=== PATIENT | male | born 1960 | race Caucasian/White ===

== ENCOUNTER 2017-06-09 19:29 | Observation (INO) | payer OTHER ==
[2017-06-09] MEDS ORDERED: NS 1,000 ML IV ONE (19:41)
[2017-06-09] MEDS ORDERED: ONDANSETRON 4 MG/2 ML VIAL IVP ONE (19:41)
[2017-06-09] MEDS ORDERED: HYDROmorphONE/DILAUDID 1 MG/ML INJ IVP ONE (19:41)
--- NOTE | 2017-06-09 19:50 | EDPHY ---
H & P Time Seen by Provider: 06/09/17 19:36 HPI/ROS: HPI Lower abdominal pain. 57-year-old male by private vehicle. This patient reports that he developed periumbilical pain starting at 8:30 a.m.. This pain then migrated down to his right lower quadrant. He describes the pain as being constant and at a low level throughout the day and evening. He reports that he has had episodes of more intense pain that come on intermittently. Pain described as burning and cramping in the right lower quadrant. No gross hematuria. No urinary complaints. Last meal was about 2 hours ago at 6:00 p.m.. This consisted of a bowl of cereal. He had an episode of nonbilious nonbloody vomiting at 12 noon but has not vomited since that time. He had 2 normal bowel movements today no bloody or melenic stool. No previous abdominal surgical history. ROS: Constitutional: No fever, no chills. No weakness. Eyes: No discharge. No changes in vision. ENT: No sore throat. No nasal congestion or rhinorrhea. Respiratory: No cough. No shortness of breath. Cardiac: No chest pain, no palpitations. Gastrointestinal: As above, no diarrhea. Genitourinary: No hematuria. No dysuria or increased frequency with urination. Musculoskeletal: No back pain. No neck pain. No myalgias or arthralgias. Skin: No rashes. Neurological: No headache. No focal weakness or altered sensation. Past medical history: Type 2 diabetes, hyperlipidemia, borderline hypertension. Medications include lisinopril, metformin on a statin. His primary care physician is Dr. Jolley. Social history: Nonsmoker. No alcohol. Here by himself. Physical Exam: General Appearance: Alert, no distress. Mildly obese habitus. This patient is responding to questions appropriately and in full sentences. This patient appears well-hydrated and well-nourished. Eyes: Pupils equal and round no pallor or injection. No lid edema, erythema or injection. Respiratory: There are no retractions, lungs are clear to auscultation with good air movement bilaterally. Cardiovascular: Regular rate and rhythm. No murmur. Gastrointestinal: Abdomen is soft with moderate right lower quadrant tenderness on palpation, no masses, bowel sounds normal. No Rodriguez sign. Neurological: Motor sensory function is grossly intact. Cranial nerves are normal. Gait is normal. Skin: Warm and dry, no rashes. Musculoskeletal: No CVA tenderness on palpation bilaterally. Extremities are symmetrical. All joints range without pain or impingement. Psychiatric: No agitation. No depression. Database: EKG: Imaging: CT scan of abdomen pelvis with IV contrast: Significant for acute appendicitis. No evidence of perforation. Significant periappendiceal inflammatory changes. Results discussed with staff radiologist. Procedures: Emergency department course: IV placed. He was placed on a playground monitor. He was started on IV normal saline with 1 L to be given over the next hour. He was initially given 0.25 mg of IV hydromorphone and 4 mg of IV Zofran. He consents for CT imaging to evaluate for appendicitis. 8:40 p.m., patient informed of diagnosis of acute appendicitis and need for operative management. Medication allergies reviewed. He was started on 1 g of IV Invanz in the emergency department. General surgery paged. 8:45 p.m. discussed case with on-call general surgeon Dr. David Manjarrez. He accepts this patient for transfer to [facility] and admission for operative management of acute appendicitis. At this time the patient does not have significant pain. He is declining any pain medication. He will drive himself to the [facility]. 9:15 p.m., patient discharge to [facility] in stable condition. Differential Diagnosis: The differential diagnosis on this patient includes but is not limited to appendicitis, ureterolithiasis, constipation. This represents a partial list of diagnoses considered. These considerations are based on history, physical exam, past history, reassessment and diagnostic testing. Smoking Status: Never smoked Constitutional: Initial Vital Signs Temperature (C) 36.7 C 06/09/17 19:42 Heart Rate 100 06/09/17 19:42 Respiratory Rate 16 06/09/17 19:42 Blood Pressure 136/83 H 06/09/17 19:42 O2 Sat (%) 96 06/09/17 19:42 O2 Delivery Mode Room Air Allergies/Adverse Reactions: Tetanus Vaccines and Toxoid Allergy (Intermediate, Verified 06/09/17 19:45) Home Medications: Medication Instructions Recorded Atorvastatin Calcium 12/05/14 Metformin HCl 12/05/14 Lisinopril 06/09/17 Medical Decision Making - Diagnostics Imaging Results: Imaging Impressions Abdomen CT 06/09/17 19:47 Impression: 1. Acute appendicitis without evidence of rupture or abscess. 2. Hilda small bowel mesentery, nonspecific but possibly related to adjacent appendicitis. 3. Diverticulosis. 4. Cholelithiasis. Dr. Bunn discussed these findings by telephone with Leonora Moraes MD on 06/09/2017 at 20:37 hours. - Data Points Laboratory Results: Laboratory Results 06/09/17 19:45 06/09/17 19:45 06/09/17 06/09/17 06/09/17 19:45 19:45 19:45 WBC 18.42 10^3/uL H 10^3/uL (3.80-9.50) RBC 4.95 10^6/uL 10^6/uL (4.40-6.38) Hgb 15.9 g/dL g/dL (13.7-17.5) Hct 45.4 % % (40.0-51.0) MCV 91.7 fL fL (81.5-99.8) MCH 32.1 pg pg (27.9-34.1) MCHC 35.0 g/dL g/dL (32.4-36.7) RDW 12.3 % % (11.5-15.2) Plt Count 246 10^3/uL 10^3/uL (150-400) MPV 9.5 fL fL (8.7-11.7) Neut % (Auto) 77.9 % H % (39.3-74.2) Lymph % (Auto) 14.4 % L % (15.0-45.0) [place] % (Auto) 6.5 % % (4.5-13.0) Eos % (Auto) 0.3 % L % (0.6-7.6) Baso % (Auto) 0.4 % % (0.3-1.7) Nucleat RBC Rel Count 0.0 % % (0.0-0.2) Absolute Neuts (auto) 14.35 10^3/uL H 10^3/uL (1.70-6.50) Absolute Lymphs (auto) 2.65 10^3/uL 10^3/uL (1.00-3.00) Absolute Monos (auto) 1.19 10^3/uL H 10^3/uL (0.30-0.80) Absolute Eos (auto) 0.06 10^3/uL 10^3/uL (0.03-0.40) Absolute Basos (auto) 0.07 10^3/uL 10^3/uL (0.02-0.10) Absolute Nucleated RBC 0.00 10^3/uL 10^3/uL (0-0.01) Immature Gran % 0.5 % % (0.0-1.1) Immature Gran # 0.10 10^3/uL 10^3/uL (0.00-0.10) Sodium 134 mEq/L mEq/L (134-144) Potassium 4.4 mEq/L mEq/L (3.5-5.2) Chloride 100 mEq/L mEq/L (97-110) Carbon Dioxide 19 mEq/l L mEq/l (22-31) Anion Gap 15 mEq/L mEq/L (8-16) BUN 15 mg/dL mg/dL (7-23) Creatinine 0.8 mg/dL mg/dL (0.7-1.3) Estimated GFR > 60 Glucose 184 mg/dL H mg/dL (70-100) Calcium 9.8 mg/dL mg/dL (8.5-10.4) Total Bilirubin 1.1 mg/dL mg/dL (0.1-1.4) Conjugated Bilirubin 0.4 mg/dL mg/dL (0.0-0.5) Unconjugated Bilirubin 0.7 mg/dL mg/dL (0.0-1.1) AST 33 IU/L IU/L (17-59) ALT 48 IU/L IU/L (21-72) Alkaline Phosphatase 40 IU/L IU/L (38-126) Total Protein 6.9 g/dL g/dL (6.3-8.2) Albumin 4.6 g/dL g/dL (3.5-5.0) Lipase 51 IU/L IU/L (23-300) Urine Color YELLOW Urine Appearance CLEAR Urine pH 6.0 (5.0-7.5) Ur Specific [place] 1.020 (1.002-1.030) Urine Protein NEGATIVE (NEGATIVE) Urine Ketones NEGATIVE (NEGATIVE) Urine Blood 2+ H (NEGATIVE) Urine Nitrate NEGATIVE (NEGATIVE) Urine Bilirubin NEGATIVE (NEGATIVE) Urine Urobilinogen 0.2 EU EU (0.2-1.0) Ur Leukocyte Esterase NEGATIVE (NEGATIVE) Urine RBC 1-3 /hpf /hpf (0-3) Urine WBC OCCASIONAL /hpf /hpf (0-3) Ur Epithelial Cells NONE SEEN /lpf /lpf (NONE-1+) Urine Mucus 2+ /lpf H /lpf (NONE-1+) Urine Glucose NEGATIVE (NEGATIVE) Medications Given: Discontinued Medications Hydromorphone HCl (Dilaudid) 0.25 mg IVP EDNOW ONE Stop: 06/09/17 19:42 Last Admin: 06/09/17 20:54 Dose: Not Given Sodium Chloride (Ns) 1,000 mls @ 0 mls/hr IV EDNOW ONE; Wide Open PRN Reason: Protocol Stop: 06/09/17 19:42 Last Admin: 06/09/17 19:52 Dose: 1,000 mls Ertapenem 1 gm/ Sodium (Chloride) 100 mls @ 200 mls/hr IV EDNOW ONE PRN Reason: Protocol Stop: 06/09/17 21:09 Last Admin: 06/09/17 20:45 Dose: 100 mls Ondansetron HCl (Zofran) 4 mg IVP EDNOW ONE Stop: 06/09/17 19:42 Last Admin: 06/09/17 20:54 Dose: Not Given Departure - Departure Disposition: [facility] Acute Clinical Impression: Lower abdominal pain, Appendicitis
[2017-06-09 19:53] LABS: % IMMATURE GRANULYOCYTES 0.5 % (0.0-1.1); ADD DIFF? NO; ADD MORPH? NO; ADD SCAN? NO; ATYPICAL LYMPHOCYTE FLAG 0 (0-99); FRAGMENT RBC FLAG 0 (0-99); HEMATOCRIT 45.4 % (40.0-51.0); HEMOGLOBIN 15.9 g/dL (13.7-17.5); LEFT SHIFT FLG 0 (0-99); LIPEMIA HEMOLYSIS FLAG 90 (0-99); MEAN CELL HEMOGLOBIN 32.1 pg (27.9-34.1); MEAN CELL VOLUME 91.7 fL (81.5-99.8); MEAN PLATELET VOLUME 9.5 fL (8.7-11.7); PLATELET CLUMPS FLAG 0 (0-99); PLATELET COUNT 246 10^3/uL (150-400); RED BLOOD CELL COUNT 4.95 10^6/uL (4.40-6.38); RED CELL DISTRIBUTION WIDTH 12.3 % (11.5-15.2)
[2017-06-09] MEDS ORDERED: IOPAMIDOL (ISOVUE-300) 100 ML BTL ONE (19:56)
[2017-06-09 20:02] LABS: COLOR YELLOW; LEUKOCYTE ESTERASE,URINE NEGATIVE (NEGATIVE); NITRITE,URINE NEGATIVE (NEGATIVE)
[2017-06-09 20:11] LABS: ALANINE AMINOTRANSFERASE 48 IU/L (21-72); ALBUMIN 4.6 g/dL (3.5-5.0); ALKALINE PHOSPHATASE 40 IU/L (38-126); ANION GAP 15 mEq/L (8-16); ASPARTATE AMINOTRANSFERASE 33 IU/L (17-59); BILIRUBIN,TOTAL 1.1 mg/dL (0.1-1.4); BILIRUBIN-CONJUGATED 0.4 mg/dL (0.0-0.5); BILIRUBIN-UNCONJUGATED 0.7 mg/dL (0.0-1.1); CALCIUM 9.8 mg/dL (8.5-10.4); CARBON DIOXIDE 19 mEq/l (22-31); CHLORIDE 100 mEq/L (97-110); CREATININE 0.8 mg/dL (0.7-1.3); GLOMERULAR FILTRATION RATE > 60; GLUCOSE 184 mg/dL (70-100); POTASSIUM 4.4 mEq/L (3.5-5.2); SODIUM 134 mEq/L (134-144); TOTAL PROTEIN 6.9 g/dL (6.3-8.2)
[2017-06-09 20:14] LABS: MUCUS 2+ /lpf (NONE-1+); WBC,URINE OCCASIONAL /hpf (0-3)
[2017-06-09] MEDS ORDERED: ERTAPENEM 1 GM in NS 100 ML IV ONE (20:40)
[2017-06-09] MEDS ORDERED: NS 100 ML BAG (MINI-BAG) IV ONE (20:43)
[2017-06-09] MEDS ORDERED: BUPIVACAINE 0.5% 30 ML SDV ONE (21:59)
[2017-06-09] MEDS ORDERED: BUPIVACAINE/EPI 0.5% 30 ML SDV ONE (22:01)
[2017-06-09] MEDS ORDERED: NALOXONE HCL 0.4 MG/ML INJ IVP PRN (22:16)
[2017-06-09] MEDS ORDERED: ONDANSETRON 4 MG/2 ML VIAL IVP PRN ×2 (22:16→22:43)
[2017-06-09] MEDS ORDERED: LR 500 ML IV PRN (22:16)
[2017-06-09] MEDS ORDERED: HYDROmorphONE/DILAUDID 1 MG/ML INJ IVP PRN ×2 (22:16→22:43)
[2017-06-09] MEDS ORDERED: fentaNYL 100 MCG/2 ML INJ IVP PRN (22:16)
[2017-06-09] MEDS ORDERED: OXYCODONE/APAP 5/325 TAB PO PRN (22:16)
[2017-06-09] MEDS ORDERED: ALBUTEROL 3 ML DEYVIAL IH PRN (22:16)
--- NOTE | 2017-06-09 22:17 | PDANEPAE ---
ANE History of Present Illness Appendectomy ANE Past Medical History - Cardiovascular History Hx Hypertension: Yes - Pulmonary History Hx Oxygen in Use at Home: No - Endocrine History Hx Diabetes: Yes ANE Review of Systems Review of Systems: ANE Patient History - Allergies Allergies/Adverse Reactions: Tetanus Vaccines and Toxoid Allergy (Intermediate, Verified 06/09/17 19:45) - Home Medications Home Medications: Atorvastatin Calcium 12/05/14 [Last Taken Unknown] Metformin HCl 12/05/14 [Last Taken Unknown] Lisinopril 06/09/17 [Last Taken Unknown] - Smoking Hx Smoking Status: Never smoked ANE Labs/Vital Signs - Labs Result Diagrams: 06/09/17 19:45 06/09/17 19:45 - Vital Signs Blood Pressure: 126/75 Heart Rate: 93 Respiratory Rate: 16 O2 Sat (%): 95 Height: 175.26 cm Weight: 93.44 kg ANE Physical Exam - Airway Neck exam: FROM Mallampati Score: Class 2 Mouth exam: normal dental/mouth exam - Pulmonary Pulmonary: clear to auscultation - Cardiovascular Cardiovascular: regular rate and rhythym - ASA Status ASA Status: II, E ANE Anesthesia Plan Anesthesia Plan: general endotracheal anesthesia
[2017-06-09] MEDS ORDERED: PROPOFOL 200 MG/20 ML VIAL ONE (22:22)
[2017-06-09] MEDS ORDERED: fentaNYL 100 MCG/2 ML INJ ONE ×3 (22:22→23:38)
[2017-06-09] MEDS ORDERED: LIDOCAINE 2% 5 ML SDV ONE (22:22)
[2017-06-09] MEDS ORDERED: ROCURONIUM 50 MG/5 ML VIAL ONE (22:22)
[2017-06-09] MEDS ORDERED: ONDANSETRON 4 MG/2 ML VIAL ONE (22:25)
[2017-06-09] MEDS ORDERED: METOCLOPRAMIDE 10 MG/2 ML VIAL ONE (22:25)
[2017-06-09] MEDS ORDERED: ZOLPIDEM TARTRATE 5 MG TAB PO PRN (22:43)
[2017-06-09] MEDS ORDERED: HYDROCODONE/APAP 5/325 TAB PO PRN (22:43)
--- NOTE | 2017-06-09 22:43 | POSTOPPROG ---
Post Op Note Date of Operation: 06/09/17 Surgeon: David Manjarrez Anesthesiologist: Tereza Anesthesia: GET(General Endotracheal) Pre-op Diagnosis: Acute Appendicitis Post-op Diagnosis: Same Procedure: Lap Appy Findings: Suppurative Appendix Inf/Abcess present in the surg proc area at time of surgery?: Yes Depth: Organ Space EBL: Minimal Specimen(s): appendix
[2017-06-09] MEDS ORDERED: LR 1,000 ML IV SCH (23:00)
[2017-06-09] MEDS ORDERED: SUGAMMADEX SODIUM 200 MG/2 ML VIAL IVP ONE (23:17)
--- NOTE | 2017-06-09 23:36 | POSTANESTH ---
Post Anesthetic Evaluation Cardiovascular Status: Normal, Stable Respiratory Status: Normal, Stable Level of Consciousness/Mental Status: Can Participate in Eval, Alert and Oriented Pain Control: Adequate, Prn Tx Ordered Nausea/Vomiting Control: Adequate, Prn Tx Ordered Complications Possibly Related to Anesthesia: None Noted
--- NOTE | 2017-06-09 23:36 | GHP ---
[f rep st] PREOP HISTORY AND PHYSICAL DATE OF ADMISSION: 06/09/2017 REASON FOR EVALUATION: Abdominal pain. HISTORY OF PRESENT ILLNESS: 57-year-old male with a significant history of diabetes who presents to the emergency room this evening with a 1-day history of worsening abdominal pain. He does report that he had been moving his wheelchair-bound more than normal and developed some right-sided back pain last evening. He was able to intermittently sleep through the night. His abdominal pains were most notable this morning. No prior history of similar complaints. One episode of emesis around midday. No fevers or chills. No voiding complaints. With progressive worsening symptoms. He presented to the emergency room this evening. ED workup disclosed leukocytosis. CT imaging confirmed evidence of a thickened appendix. Surgery has been requested for further recommendations. PAST MEDICAL HISTORY: Xrr-ylhzdkc-eaunhnfzz diabetes mellitus, hypertension, hyperlipidemia. MEDICATIONS: Lisinopril, metformin, statin medicine. ALLERGIES: No known drug allergies other than tetanus. SOCIAL HISTORY: No alcohol, no tobacco. 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 FAMILY HISTORY: Noncontributory. REVIEW OF SYSTEMS: Notable for above GI complaints only. PHYSICAL EXAMINATION: VITAL SIGNS: Temperature 37, blood pressure 120/70, pulse 90, respirations 16. GENERAL: Patient is alert, appropriate, comfortable. HEENT: Anicteric. NECK: No cervical or supraclavicular lymphadenopathy. HEART: Regular. LUNGS: Clear. ABDOMEN: Soft. Mild right lower quadrant tenderness without rebound or guarding. No Rovsing sign. No obturator sign. EXTREMITIES: Without edema. NEUROLOGIC: Alert and appropriate x3. BACK: Nontender. SKIN: Normal. LABORATORY: White count 18, hemoglobin 16, platelets of 250. Electrolytes within reference range. Liver enzymes within reference range. Urinalysis normal. CT images were previously directly reviewed on PACS. Markedly thickened appendix up to 10 mm with notable surrounding inflammation. No free air. No free fluid. Cholelithiasis and diverticulosis. IMPRESSION: 1. Acute appendicitis. 2. Asymptomatic cholelithiasis and diverticulosis. PLAN: Laparoscopic appendectomy. Risks and benefits were explained, including bleeding, infection, open conversion, as well as alternative diagnoses. All questions were answered. He desires to proceed. For asymptomatic cholelithiasis and diverticulosis, no further treatment recommendations at this time. /[id number]/MODL MTDD
[2017-06-10] MEDS: KETOROLAC 15 MG/1 ML SDV IVP SCH ×2 (01:11→06:12)
--- NOTE | 2017-06-10 07:22 | GOP ---
[f rep st] OPERATIVE REPORT DATE OF OPERATION: 06/09/2017 SURGEON: David Manjarrez MD ANESTHESIA: General, Dr. Starks. PREOPERATIVE DIAGNOSIS: Acute appendicitis. POSTOPERATIVE DIAGNOSIS: Acute appendicitis. PROCEDURE PERFORMED: Laparoscopic appendectomy. FINDINGS: Suppurative appendicitis. INDICATIONS: 57-year-old male with acute appendicitis. He is undergoing a laparoscopic appendectomy at this time. Risks and benefits were explained of bleeding, infection, open conversion, as well as alternative diagnoses. All questions were answered. He desires to proceed. DESCRIPTION OF PROCEDURE: After general anesthesia was induced, the abdomen was pre-injected with 0.5% Marcaine with epinephrine. A vertical infraumbilical cutdown was created. A 10 mm trocar was placed under direct visualization. The abdomen was insufflated to 15 mmHg. Two additional 5 mm lower midline ports were inserted. The appendix was acutely thickened with mild suppuration sitting in retrocecal location. The cecum was elevated out of the retroperitoneum. The mesoappendix was divided with Harmonic scalpel. The base was transected flush with the cecum with an endoscopic VICTOR M stapler. The specimen was brought out through the umbilical port site using EndoCatch pouch. Satisfactory hemostasis was assured. Trocars were removed under direct visualization. Small areas of pneumatosis were noted within the colonic mesentery. No notable bowel injury, bile staining or feculent drainage was identified at any point. This was presumed from insufflation trocar. Satisfactory hemostasis was assured. Trocars were removed under direct visualization. The infraumbilical midline fascia was closed with a Vicryl suture. The wounds were closed with Monocryl and Dermabond. The patient was taken to recovery room uneventfully. SURGEON: David Manjarrez MD. /[id number]/MODL MTDD
[2017-06-10 07:52] VITALS: BP 99/71; PULSE 78; RESP 18; TEMP 98; O2SAT 97
[2017-06-10] MEDS ORDERED: FLU VACC QS 2017-18 (3YR+)/PF 0.5 ML SYR (FLUARIX QUAD) IM ONE (09:43)
--- NOTE | 2017-06-10 11:11 | ASDISCHSUM ---
Discharge Information Plan Status:Home with No Needs Medically Cleared to Leave: Discharge Date:06/10/2017 11:08 AM CM D/C Disposition:Home, Routine, Self-Care ADT D/C Disposition:Home, Routine, Self-Care Projected Discharge Date:06/10/2017 11:08 AM Transportation at D/C: Discharge Delay Reason: Follow-Up Date:06/10/2017 11:08 AM Discharge Slot: Final Diagnosis: Placement Information Patient Contact Information Contact Name:HENRY Relationship: Address:[address] [place] [address] Work Phone: City:[facility] Phone: [facility]/Zip Code:[place] [address] Email: Financial Information Financial Class:HMO and PPO Plans Primary Plan Desc: FABI YG CRUMPMELVA Primary Plan Number:[id number] Secondary Plan Desc: Secondary Plan Number: Assessment Information Intervention Information
== END 2017-06-10 11:08 | disposition home or self-care (01) ==
LOC: CED 19:29 → CEDHOLD 20:56 → F3N 06-10 00:30
PROVIDERS: ADMIT Surgery; ATTEND Surgery
PROC: 0DTJ4ZZ Resection of Appendix, Percutaneous Endoscopic Approach (ICD-10-PCS; principal; 2017-06-09 22:00)
DX: K35.80 Unspecified acute appendicitis (principal); E11.9 Type 2 diabetes mellitus without complications; I10 Essential (primary) hypertension; E78.5 Hyperlipidemia, unspecified
CPT/HCPCS: 44970; 74177; G0378; 80048-PO; 80076-PO; 81003-PO; 81015-PO; 83690-PO; 85025-PO; 96365; J1170; J1335; J1885; J2405; J2704; J2765; J3010; Q9967

== ENCOUNTER 2018-07-21 08:23 | Emergency (ER) | payer OTHER ==
[2018-07-21] MEDS ORDERED: PROPARACAINE 0.5% 15 ML OPHT DROP ONE (08:35)
[2018-07-21] MEDS ORDERED: OFLOXACIN 0.3% SOLN PREPACK OPHT.BTL TAKEHOME ONE ×2 (08:54→09:27)
[2018-07-21] MEDS ORDERED: PROPARACAINE/FLUORESCEIN SOD 5 ML OPHT.BTL ONE (08:54)
[2018-07-21] MEDS ORDERED: FLUORESCEIN SODIUM 1 MG STRIP OP ONE (08:54)
--- NOTE | 2018-07-21 09:27 | EDPHY ---
H & P Time Seen by Provider: 07/21/18 08:28 HPI/ROS: CHIEF COMPLAINT: Right eye redness and foreign body sensation. HISTORY OF PRESENT ILLNESS: Patient states this morning around 6:00 a.m. When he woke up he had some crusty discharge on his eyelashes. He has had this frequently in the past year so. He states when he was rubbing his eyes to cleared the crusts he had a sensation of a foreign body or a scratch to the right eye. Continues to feel as if something is in the eye. There is some redness to the eye as well. He says his vision is okay although little blurry on that side since this morning's episode. He denies any known foreign body in his eye yesterday or this morning. He has no current upper respiratory infection. He does get his eye is examined at least once you're as he has type 2 diabetes. He uses prescription corrective lenses. REVIEW OF SYSTEMS: Negative except per HPI. General Appearance: Alert, no distress. Eyes: Pupils equal and round no icterus. Right eye with conjunctival injection. Eversion of the upper lid shows an area of erythema and slight swelling just medial of center and not at the eyelid margin. No foreign bodies seen. 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 Respiratory: No respiratory distress Neurological: Awake, alert, no focal deficits. Skin: Warm and dry, no rashes. Musculoskeletal: Neck is supple nontender. Extremities are symmetrical, full range of motion, no edema. Psychiatric: Patient is oriented X 3, there is no agitation. Medical/surgical history: Type 2 diabetes, hypertension, high cholesterol, surgeries include tonsillectomy and appendectomy. Social history: Nonsmoker Smoking Status: Never smoked Constitutional: Initial Vital Signs Temperature (C) 36.9 C 07/21/18 08:27 Heart Rate 68 07/21/18 08:27 Respiratory Rate 16 07/21/18 08:27 Blood Pressure 117/87 H 07/21/18 08:27 O2 Sat (%) 95 07/21/18 08:27 O2 Delivery Mode Room Air Allergies/Adverse Reactions: Tetanus Vaccines and Toxoid Allergy (Verified 07/21/18 08:30) Pt reports rxn at 8 years old. Unsure of reaction Home Medications: Medication Instructions Recorded Atorvastatin Calcium [Lipitor 20 #0 15 mg (*)] metFORMIN HCL [Glucophage 500 mg #0 12/05/14 (*)] Lisinopril [Zestril 10 mg (*)] #0 06/09/17 Aspirin [Aspirin 81mg (*)] 06/10/17 Medical Decision Making ED Course/Re-evaluation: 9:[address] Mo, ophthalmology, and discussed the case. Appointment was made for patient to follow up with the hardware assembler today at 11:00 a.m. At the office in [place]. Discussed with patient he will follow-up as scheduled today with the eye doctor. Also given bottle of Ocuflox topical antibiotic with instructions to use 1-2 drops to the affected eye 5 times daily for 5 days. Differential Diagnosis: Differential diagnosis includes but is not limited to corneal abrasion, corneal ulceration, conjunctivitis, foreign body, hordeolum, iritis. After evaluation no evidence of foreign body, corneal ulceration or corneal abrasion. Atypical lesion to the upper lid similar to hordeolum but may represent minor trauma today. 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 Mo's office and scheduled patient for follow-up visit today. He verbalized understanding of follow-up plan. Stable for discharge and no barriers for driving secondary to vision changes. - Data Points Medications Given: Discontinued Medications Ofloxacin (Ocuflox 0.3% Opht Drops Prepack) 1 btl [facility] EDNO ONE Stop: 07/21/18 09:28 Last Admin: 07/21/18 09:32 Dose: 1 btl Departure - Departure Clinical Impression: Hordeolum Qualifiers: Hordeolum type: internum Laterality: right Eyelid: upper Qualified Code(s): H00.021 - Hordeolum internum right upper eyelid Condition: Good Instructions: Ofloxacin (Into the eye), Misael (ED) Additional Instructions: You have an appointment today at 11:[address] Mo, the hardware assembler. The address is [address] [place] [address]. You should show up at least 15 min early for this appointment. Use the eye drops as prescribed, 1-2 drops to the affected eye 5 times a day for approximately 5 days however verify this with Dr. Mo. Referrals: Nate Jolley MD [Primary Care Provider] - As per Instructions Ritu Mo MD [Medical Doctor] - As per Instructions
[2018-07-21 09:39] VITALS: BP 129/82
== END 2018-07-21 09:35 | disposition home or self-care (01) ==
LOC: CED 08:23
DX: H00.021 Hordeolum internum right upper eyelid (principal); E11.9 Type 2 diabetes mellitus without complications